=== PATIENT | female | born 1990 | race Caucasian/White ===

== ENCOUNTER 2018-07-30 06:39 | Emergency (ER) | payer BC, OTHER ==
[2018-07-30] MEDS ORDERED: Ondansetron HCl/PF 4 MG/2 ML Vial ONE ×4 (06:52→11:56)
[2018-07-30] MEDS ORDERED: Ketorolac Tromethamine 30 MG/ML VIAL ONE (06:52)
[2018-07-30] MEDS ORDERED: Fentanyl 100 MCG/2 ML VIAL ONE ×3 (07:09→08:40)
[2018-07-30 07:10] LABS: #Basophils 0.1 thou/uL (0.0-0.2); #Eosinphils 0.2 thou/uL (0.0-0.7); #Lymphocytes 3.1 thou/uL (1.20-3.40); #Monocytes 0.4 thou/uL (0.11-0.59); #Neutrophils 3.3 thou/uL (1.40-6.50); %Basophils 1.2 % (0.0-1.0); %Eosinophils 3.5 % (0.0-10.0); %Lymphocytes 43.6 % (21.0-51.0); %Monocytes 5.8 % (0.0-10.0); %Neutrophils 45.9 % (42.0-75.0); Hemoglobin 14.6 g/dL (12.0-16.0); Mean Corpuscular HGB CONC 33.4 g/dL (32.0-36.0); Mean Corpuscular Hemoglobin 30.3 pg (27.0-31.0); Mean Corpuscular Volume 90.6 fL (78.0-98.0); Mean Platelet Volume 10.8 fL (7.4-10.4); Platelet Count 240 thou/uL (130-400); RBC Distribution Width 11.6 % (11.5-14.5); Red Blood Cell (RBC) Count 4.82 mill/uL (4.20-5.40); White Blood Cell (WBC) Count 7.1 thou/uL (4.8-10.8)
[2018-07-30 07:14] LABS: BHCG - Serum Negative (NEGATIVE); Pregs Control Background? CLEAR/WHITE (CLR/WHITE); Pregs Control Bar Appear? YES (CONTROL BAR)
[2018-07-30 07:21] LABS: Clarity Clear (Clear); Specific Gravity, Urine 1.027 (1.002-1.036)
[2018-07-30 07:22] LABS: Bilirubin Small (Negative); Blood, Urine Moderate (Negative); Glucose, Urine (Dipstick) Negative (Negative); Leukocyte Negative (Negative); Nitrite Negative (Negative); Protein, Urine (Dipstick) Negative (Neg-Trace); Urobilinogen 0.2 mg/dL (0.2-1.0); pH, Urine 5.5 (5.0-9.0)
[2018-07-30 07:24] LABS: ALT (SGPT) 13 U/L (8-55); AST (SGOT) 17 U/L (5-34); Albumin 4.6 g/dL (3.5-5.0); Alkaline Phosphatase 52 U/L (40-150); Anion Gap 12 mmol/L (10-20); BUN (Urea Nitrogen) 17 mg/dL (7.0-18.7); Bilirubin, Total 0.4 mg/dL (0.2-1.2); Calc. Creatinine Clearance 0 mL/min (70-130); Calcium 9.4 mg/dL (7.8-10.44); Carbon Dioxide 21 mmol/L (22-29); Chloride 109 mmol/L (98-107); Estimated GFR-MDRD 77; Globulin 3.1 g/dL (2.4-3.5); Glucose 101 mg/dL (70-105); Lipase 15 U/L (8-78); Potassium 4.3 mmol/L (3.5-5.1); Protein, Total 7.7 g/dL (6.0-8.3); Sodium 138 mmol/L (136-145)
[2018-07-30 07:26] LABS: Bacteria/HPF 1+ HPF (None Seen); Squamous Epithelial 0-3 HPF (0-3); WBC/HPF 0-3 HPF (0-3); Yeast-All Forms 2+ HPF (None Seen)
[2018-07-30] MEDS ORDERED: methylPREDNISolone Sod Succ/PF 125 MG/2 ML VIAL ONE (08:35)
[2018-07-30] MEDS ORDERED: Iopamidol 370 76% 100 ML VIAL ONE (09:00)
[2018-07-30] MEDS ORDERED: Dicyclomine 20 MG TAB ONE (09:00)
[2018-07-30] MEDS ORDERED: Morphine 4 MG/ML Carpuject ONE (10:10)
[2018-07-30] MEDS ORDERED: Acetaminophen/Codeine 30-300mg Tablet ONE (12:30)
--- NOTE | 2018-07-30 12:38 | CT ---
PRELIMINARY REPORT/[facility]/EMERGENCY AFTER HOURS PROCEDURE: EXAM: CT Abdomen and Pelvis With Intravenous Contrast EXAM DATE/TIME: 07/30/2018 7:31 AM CLINICAL HISTORY: 27 years old, female; Pain; Abdominal pain and other: Right back pain; Flank; Right lower quadrant (r lq) TECHNIQUE: Axial computed tomography images of the abdomen and pelvis with intravenous contrast. Coronal and sag ittal reformatted images were created and reviewed. CONTRAST: 95 ml of Iso 370 administered intravenously. COMPARISON: No relevant prior studies available. FINDINGS: Lower thorax: No acute findings. ABDOMEN: Liver: Normal. No mass. Gallbladder and bile ducts: Normal. No calcified stones. No ductal dilation. Pancreas: Normal. No ductal dilation. Spleen: Normal. No splenomegaly. Adrenals: Normal. No mass. Kidneys and ureters: There is moderate right hydronephrosis. There is also delayed enhancement of the right kidney. This is secondary to 0.4 cm distal ureteral stone immediately adjacent or at the right uterovesical junction. Stomach and bowel: Normal. No obstruction. No mucosal thickening. Appendix: Not seen. PELVIS: Bladder: Unremarkable as visualized. Reproductive: There is 1.9 cm hypodense lesion of the left adnexal region, likely ovarian origin. Prominent left pelvic vessels. ABDOMEN and PELVIS: Intraperitoneal space: Normal. No free air. No significant fluid collection. Bones/joints: No acute fracture. No dislocation. Soft tissues: Bilateral breast implants. Vasculature: Normal. No abdominal aortic aneurysm. Lymph nodes: Normal. No enlarged lymph nodes. IMPRESSION: Moderate right-sided hydronephrosis secondary to 0.4 cm distal ureteral stone immediately adjacent or at the right uterovesical junction. Thank you for allowing us to participate in the care of your patient. Dictated and Authenticated by: Felicitas Mario DO 07/30/2018 8:31 AM Central Time ([place] & [place]) FINAL REPORT CT ABDOMEN AND PELVIS WITH CONTRAST: FINDINGS: Spiral CT of the abdomen and pelvis was performed for evaluation of right lower quadrant pain. Axial slices were acquired, then coronal and sagittal reconstructions were done. Mild to moderate right hydronephrosis is present secondary to a 5 mm distal right ureteral calculus. This is located at the right UVJ. No other renal calculi were appreciated. No renal masses were se en. The lung bases are clear. The liver, spleen, pancreas, adrenal glands, gallbladder, and abdominal ao rta are unremarkable. The patient's inferior vena cava was a bit larger than I often see, significan ce unknown. The bowel shows no distention or inflammatory change in or around it. There is an abundance of fecal material. Some loops of small bowel are fluid-filled but not dilated, nor are their pepe thick. N o free air or free fluid was present. CT of the pelvis showed a 3 cm cystic structure in the left adnexal region. It is likely ovarian in origin. No other focal abnormalities of concern were seen. IMPRESSION: 1. A 5 mm distal right ureteral calculus causing mild to moderate right hydronephrosis. 2. Mild constipation. 3. A 3 cm left adnexal cyst. An elective ultrasound might be more instructive in this area. Report in agreement with preliminary reading by [email or web address]. POS: HOME
== END 2018-07-30 13:45 | disposition home or self-care (01) ==
LOC: BURERS 06:39
DX: N13.2 Hydronephrosis with renal and ureteral calculous obstruction (principal)
CPT/HCPCS: 74177; 80053; 81003; 81015; 83690; 84703; 85025; 96374; 96375; 96376; A4216; J1885; J2270; J2405; J2930; J3010